=== PATIENT | female | born 1980 | race Caucasian/White ===

== ENCOUNTER 2022-10-15 15:38 | Outpatient (CLI) | payer BC ==
--- NOTE | 2022-10-16 11:57 | Mammography Report ---
BILATERAL DIGITAL SCREENING MAMMOGRAM 3D/2D: 10/15/2022 CLINICAL: Family history of breast cancer. Baseline exam. Routine screening. No prior exams were available for comparison. Both breasts are heterogeneously dense, which may obscure small masses (category c / 51-75% glandular tissue). There is a possible oval equal density asymmetry in the left breast middle depth lateral region seen on the craniocaudal view only. There also is a possible irregular equal density asymmetry in the left breast middle depth medial reg ion seen on the craniocaudal view only. No other significant masses, calcifications, or other findings are seen in either breast. IMPRESSION: INCOMPLETE: NEEDS ADDITIONAL IMAGING EVALUATION The possible oval equal density asymmetry in the left breast middle depth lateral region seen on the craniocaudal view only is indeterminate. Additional views with possible ultrasound are recommended. The possible irregular equal density asymmetry in the left breast middle depth medial region seen on the craniocaudal view only resembles fibroglandular tissue and is indeterminate. Additional views wi th possible ultrasound are recommended. Based on Tyrer-Cuzick model (a risk assessment model), the patient's lifetime risk is 21.2% and her 1 0 year risk is 2.8%. If a patient has an elevated risk, a more comprehensive evaluation should be con sidered and/or a referral to a genetic counselor. The [employer] [employer], [employer], and NCCN Guidelines advise the consideration of Breast MRI as an adjunct to screening mammog xochitl in patients whose "Lifetime risk to develop breast cancer" is 20% or higher. This exam was interpreted at Station ID: [id number]. NOTE: For mammograms, a report in lay terms will be sent to the patient. Approximately 15% of breast malignancies will not be visualized mammographically. In the management of a palpable breast mass, a negative mammogram must not discourage biopsy of a clinically suspicious lesion. Electronically Signed By: Navarro Gray M.D. aty/:10/16/2022 07:27:48 ACR BI-RADS Category 0: Incomplete 3340F PARENCHYMAL PATTERN: (D) - The breast(s) demonstrate(s) heterogeneously dense fibroglandular parenchy ma. BI-RADS CATEGORY: (0) - 0 Mammo and [place] [id number] Immediate follow-up LATERALITY: (L)
== END 2022-10-15 15:39 | disposition home or self-care (01) ==
LOC: DI.N 15:38
DX: Z12.31 Encounter for screening mammogram for malignant neoplasm of breast (principal); Z80.3 Family history of malignant neoplasm of breast

== ENCOUNTER 2022-10-31 08:44 | Outpatient (CLI) | payer BC ==
--- NOTE | 2022-11-03 11:53 | Ultrasound Report ---
LIMITED ULTRASOUND OF LEFT BREAST: 10/31/2022 CLINICAL: Patient returns today to evaluate a focal asymmetry in the left breast. Comparison is made to exams dated: 10/31/2022 mammogram and 10/15/2022 mammogram - [facility]. Color flow ultrasound of the left breast 2-4 o'clock region was performed. Raymundo scale images of the real-time examination were reviewed. No significant abnormalities were seen sonographically in the left breast. IMPRESSION: NEGATIVE There is no sonographic evidence of malignancy. There is no abnormality seen in the left breast to correspond with the mammography finding which like ly represents normal fibroglandular tissue. A 1 year screening mammogram is recommended. Findings and recommendations were conveyed to the patient during today's evaluation. This exam was interpreted at Station ID: [id number]. Electronically Signed By: Navarro Gray M.D. aty/:10/31/2022 12:52:06 Ultrasound BI-RADS: 1 Negative BI-RADS CATEGORY: (1) - 1 RECOMMENDATION: (ANNUAL) - Recommend routine annual screening mammography. [id number] 1 year screening LATERALITY: (B)
--- NOTE | 2022-11-03 11:53 | Mammography Report ---
UNILATERAL LEFT DIGITAL DIAGNOSTIC MAMMOGRAM 3D/2D WITH SPOT COMPRESSION: 10/31/2022 CLINICAL: Patient returns today to evaluate an asymmetries in the left breast. Comparison is made to exam dated: 10/15/2022 mammogram - [facility]. The left breast is heterogeneously dense, which may obscure small masses (category c / 51-75% glandul ar tissue). The previously described possible oval equal density asymmetry in the left breast middle depth latera l region seen on the craniocaudal view only is less prominent. The possible irregular equal density asymmetry in the left breast middle depth medial region seen on the craniocaudal view only is no longer seen and resembles fibroglandular tissue. This is not confir med in additional views and is consistent with summation artifact. No other significant masses or calcifications are seen in the breast. IMPRESSION: INCOMPLETE: NEEDS ADDITIONAL IMAGING EVALUATION The possible oval equal density asymmetry in the left breast middle depth lateral region seen on the craniocaudal view only is indeterminate. An ultrasound is recommended for further evaluation and is s cheduled to immediately follow this examination. The previously described asymmetry in the medial left breast disperses with additional views and is c onsistent with summation artifact. Based on Tyrer-Cuzick model (a risk assessment model), the patient's lifetime risk is 21.7% and her 1 0 year risk is 2.9%. If a patient has an elevated risk, a more comprehensive evaluation should be con sidered and/or a referral to a genetic counselor. The [employer], [employer], and NCCN Guidelines advise the consideration of Breast MRI as an adjunct to screening mammog xochitl in patients whose "Lifetime risk to develop breast cancer" is 20% or higher. This exam was interpreted at Station ID: [id number]. NOTE: For mammograms, a report in lay terms will be sent to the patient. Approximately 15% of breast malignancies will not be visualized mammographically. In the management of a palpable breast mass, a negative mammogram must not discourage biopsy of a clinically suspicious lesion. Electronically Signed By: Navarro Gray M.D. aty/:10/31/2022 12:50:55 ACR BI-RADS Category 0: Incomplete 3340F PARENCHYMAL PATTERN: (D) - The breast(s) demonstrate(s) heterogeneously dense fibroglandular [facility]. BI-RADS CATEGORY: (0) - 0 Ultrasound [id number] Immediate follow-up LATERALITY: (L)
== END 2022-10-31 08:45 | disposition home or self-care (01) ==
LOC: DI 08:44
PROVIDERS: ATTEND Nurse Practitioner
DX: R92.8 Other abnormal and inconclusive findings on diagnostic imaging of breast (principal)

== ENCOUNTER 2023-11-03 15:44 | Outpatient (CLI) | payer BC ==
--- NOTE | 2023-11-06 11:35 | Mammography Report ---
BILATERAL DIGITAL SCREENING MAMMOGRAM 3D/2D: 11/03/2023 CLINICAL: Routine screening. Family history of breast cancer. Comparison is made to exams dated: 10/31/2022 ultrasound, 10/31/2022 mammogram, and 10/15/2022 mammogram - [facility]. Both breasts are heterogeneously dense, which may obscure small masses (category c / 51-75% glandular tissue). No significant masses, calcifications, or other findings are seen in either breast. There has been no significant interval change. IMPRESSION: NEGATIVE There is no mammographic evidence of malignancy. A 1 year screening mammogram is recommended. Based on Tyrer-Cuzick model (a risk assessment model), the patient's lifetime risk is 22.1% and her 1 0 year risk is 3.2%. If a patient has an elevated risk, a more comprehensive evaluation should be con sidered and/or a referral to a genetic counselor. The [place] [employer], [employer], and NCCN Guidelines advise the consideration of Breast MRI as an adjunct to screening mammog xochitl in patients whose "Lifetime risk to develop breast cancer" is 20% or higher. This exam was interpreted at Station ID: [id number]. NOTE: For mammograms, a report in lay terms will be sent to the patient. Approximately 15% of breast malignancies will not be visualized mammographically. In the management of a palpable breast mass, a negative mammogram must not discourage biopsy of a clinically suspicious lesion. Electronically Signed By: Vu Kelley M.D. [facility] [place]11/04/2023 11:45:40 ACR BI-RADS Category 1: Negative 3341F PARENCHYMAL PATTERN: (D) - The breast(s) demonstrate(s) heterogeneously dense fibroglandular parenchy ma. BI-RADS CATEGORY: (1) - 1 Mammogram [id number] 1 year screening LATERALITY: (B)
== END 2023-11-03 15:45 | disposition home or self-care (01) ==
LOC: DI.N 15:44
DX: Z12.31 Encounter for screening mammogram for malignant neoplasm of breast (principal); Z80.3 Family history of malignant neoplasm of breast; R92.333 Mammographic heterogeneous density, bilateral breasts